=== PATIENT | male | born 1955 | race Caucasian/White ===

== ENCOUNTER 2016-07-11 06:11 | Day surgery (SDC) | payer OTHER ==
[2016-07-19] MEDS ORDERED: LIPITOR DPS20 MG PO (11:13)
[2016-07-19] MEDS ORDERED: AMARYL DPS4 MG PO (11:13)
[2016-07-19] MEDS ORDERED: LOPID DPS600 MG PO (11:14)
[2016-07-19] MEDS ORDERED: ALLOPURINOL300 MG PO (11:14)
[2016-07-19] MEDS ORDERED: DEXAMETHASONE4 MG PO (11:15)
[2016-07-19] MEDS ORDERED: JANUVIA100 MG PO (11:16)
[2016-07-19] MEDS ORDERED: DAILY MULTIPLE1 EAC1 PO (11:16)
[2016-07-19] MEDS ORDERED: CINNAMON500 MG PO (11:16)
[2016-07-19] MEDS ORDERED: FARXIGA5 MG PO (11:17)
[2016-07-19] MEDS ORDERED: COMPAZINE DPS5 MG PO (11:17)
[2016-07-19] MEDS ORDERED: HUMALOG100 UNIT/1 SQ (11:19)
[2016-07-19] MEDS ORDERED: LEVAQUIN DPS500 MG PO (11:20)
== END 2016-07-11 11:55 | disposition home or self-care (01) ==
DX: C15.9 Malignant neoplasm of esophagus, unspecified (principal); E11.9 Type 2 diabetes mellitus without complications; E78.5 Hyperlipidemia, unspecified; Z90.49 Acquired absence of other specified parts of digestive tract; Z87.891 Personal history of nicotine dependence; Z98.890 Other specified postprocedural states; Z79.899 Other long term (current) drug therapy